=== PATIENT | female | born 2000 | race Caucasian/White ===

== ENCOUNTER 2025-06-27 02:31 | Inpatient (IN) | payer BC ==
[2025-06-27 02:56] LABS: #Basophils 0.03 10x3/uL (0.0-0.2); #Eosinophils 0.04 10x3/uL (0.0-0.5); #Monocytes 0.41 10x3/uL (0.0-1.1); #Neutrophils 15.48 10x3/uL (1.5-8.4); %Basophils 0.2 % (0.0-2.0); %Eosinophils 0.2 % (0.0-6.0); %Lymphocytes 2.8 % (18.0-47.0); %Monocytes 2.5 % (0.0-10.0); %Neutrophils 93.8 % (40.0-75.0); Hematocrit 35.5 % (34.9-44.5); Hemoglobin 12.0 g/dL (12.0-15.5); Mean Corpuscular Hemoglobin 28.5 pg (27.0-33.0); Mean Corpuscular Volume 84.3 fL (81.6-98.3); Platelet Count 241 10x3/uL (150-450); Red Blood Cell (RBC) Count 4.21 10x6/uL (3.90-5.03); White Blood Cell (WBC) Count 16.51 10x3/uL (3.5-10.5)
[2025-06-27] MEDS ORDERED: Prochlorperazine 10 MG/2 ML VIAL ONE (02:57)
[2025-06-27] MEDS ORDERED: diphenhydrAMINE 50 MG/ML VIAL ONE (02:57)
[2025-06-27 03:04] LABS: Glucose, Urine (Dipstick) Normal (Negative); Leukocyte 100 (Negative); Protein, Urine (Dipstick) 30 mg/dl (Neg-Trace); Specific Gravity, Urine 1.030 (1.005-1.030)
[2025-06-27 03:09] LABS: Pregnancy Test - Urine (BHCG) POSITIVE (Negative); Pregu Control Background? CLEAR/WHITE (CLR/WHITE); Pregu Control Bar Appear? YES (CONTROL BAR)
[2025-06-27 03:11] LABS: Bacteria/HPF 4+ HPF (None Seen); CAUTI Indications for Culture Pregnancy; RBC/HPF 0-3 HPF (0-3)
[2025-06-27 03:12] LABS: Urine Culture Reflex Yes Yes
[2025-06-27 03:14] LABS: ALT (SGPT) 11 U/L (Less than 34); AST (SGOT) 20 U/L (11-34); Albumin 3.7 g/dL (3.1-4.5); Alkaline Phosphatase 80 U/L (40-110); Anion Gap 15 mmol/L (10-20); BUN (Urea Nitrogen) 11 mg/dL (7.0-18.7); Bilirubin, Total 0.9 mg/dL (0.3-1.2); Calc. Creatinine Clearance 0 mL/min (70-130); Calcium 9.0 mg/dL (7.8-10.44); Carbon Dioxide 22 mmol/L (22-29); Chloride 104 mmol/L (98-107); Globulin 3.2 g/dL (2.4-3.5); Glucose 142 mg/dL (70-105); Potassium 4.2 mmol/L (3.5-5.1); Sodium 137 mmol/L (136-145)
[2025-06-27] MEDS ORDERED: cefTRIAXone (ROCEPHIN) 1 GM VIAL ONE (03:14)
[2025-06-27] MEDS ORDERED: Ondansetron PF 4 MG/2 ML Vial IVP PRN (07:23)
[2025-06-27] MEDS ORDERED: hydrALAZINE 20 MG/ML VIAL SLOW IVP PRN (07:25)
[2025-06-27] MEDS: Promethazine HCl 12.5 MG, Admixture Fee 1 EACH in Sodium Chloride 0.9% 50 ML IVPB SCH (09:11)
[2025-06-27] MEDS: Famotidine/PF 20 mg/2ml Vial SLOW IVP SCH (13:51)
[2025-06-27] MEDS: Acetaminophen 500 MG TAB PO PRN (13:51)
[2025-06-27] MEDS: cefTRIAXone\\ROCEPHIN 2 GM in Sodium Chloride 0.9% 100 ML IVPB SCH (15:00)
[2025-06-28 03:41] LABS: #Basophils Less than 0.03 10x3/uL (0.0-0.2); #Eosinophils Less than 0.03 10x3/uL (0.0-0.5); #Monocytes 0.32 10x3/uL (0.0-1.1); #Neutrophils 6.21 10x3/uL (1.5-8.4); %Basophils 0.3 % (0.0-2.0); %Eosinophils 0.3 % (0.0-6.0); %Lymphocytes 12.0 % (18.0-47.0); %Monocytes 4.2 % (0.0-10.0); %Neutrophils 82.1 % (40.0-75.0); Hematocrit 27.6 % (34.9-44.5); Hemoglobin 9.4 g/dL (12.0-15.5); Mean Corpuscular Hemoglobin 29.7 pg (27.0-33.0); Mean Corpuscular Volume 87.1 fL (81.6-98.3); Platelet Count 168 10x3/uL (150-450); Red Blood Cell (RBC) Count 3.17 10x6/uL (3.90-5.03); White Blood Cell (WBC) Count 7.56 10x3/uL (3.5-10.5)
[2025-06-29 12:12] VITALS: BP 125/80; TEMP 97.5
== END 2025-06-29 12:15 | disposition home or self-care (01) | DRG 832 ==
LOC: CSHERS 02:31 → CSHANTE 07:11
PROVIDERS: ADMIT Obstetrics & Gynecology; ATTEND Student in an Organized Health Care Education/Training Program
DX: O23.02 Infections of kidney in pregnancy, second trimester (principal); N10 Acute pyelonephritis; Z3A.24 24 weeks gestation of pregnancy
CPT/HCPCS: 36415; 80053; 81001; 81025; 83605; 85025; 87086; 96361; 96365; 96375; J0696; J0780; J1200; J1308; J2550; J7120